=== PATIENT | male | born 1955 | race Two or more races ===

== ENCOUNTER 2017-01-06 12:58 | Emergency (ER) | payer MEDICAID ==
[~2017-01-06] VITALS: Ht 167.6 cm; Wt 68.0 kg
[2017-01-06 14:09] LABS: Basophils # (auto) 0.1 uL; Basophils % (auto) 0.9 % (0.0-2.0); Eosinophils # (auto) 0.5 uL; Eosinophils % (auto) 6.5 % (0.0-7.0); Hematocrit 41.9 % (41.0-53.0); Hemoglobin 13.6 g/dL (13.5-17.5); Lymphocytes # (auto) 2.6 uL; Lymphocytes % (auto) 36.4 % (10.0-50.0); Mean Corpuscular Hemoglobin 27.4 pg (28.0-32.0); Mean Corpuscular Hgb Conc. 32.6 g/dL (32.0-36.0); Mean Corpuscular Volume 84.1 fL (80.0-100.0); Mean Platelet Volume 7.8 fL (6.9-10.8); Monocytes # (auto) 0.7 uL; Monocytes % (auto) 9.1 % (0.0-12.0); Neutrophils # (auto) 3.4 uL; Neutrophils % (auto) 47.1 % (37.0-80.0); Nucleated Red Blood Cells % 0.1 %; Platelet Count (auto) 355 10^3/uL (140-450); White Blood Cell 7.2 10^3/uL (4.4-10.8)
[2017-01-06 14:25] LABS: Albumin 3.2 g/dL (3.4-5.0); BUN/Creatinine Ratio 18.4; Calcium 8.6 mg/dL (8.5-10.1); Potassium 4.6 mmol/L (3.5-5.1)
[2017-01-06 14:38] LABS: Bilirubin, Total 0.2 mg/dL (0.2-1.0); Total Protein 7.3 g/dL (6.4-8.2)
[2017-01-06 19:03] LABS: Urine Bilirubin Negative (Negative); Urine Blood 3+ /uL (Negative); Urine Ca Oxalate Crystal MOD (None Seen); Urine Glucose Normal (Normal); Urine Ketone 1+ (Negative); Urine Mucus FEW (None Seen); Urine Nitrite POSITIVE (Negative); Urine RBC 2835 /hpf (0 - 3); Urine Urobilinogen Normal (Negative); Urine pH 5.5 (5.0-8.0)
[2017-01-06 19:08] LABS: Urine Color Brown (Yellow)
[2017-01-06] MEDS ORDERED: CIPROFLOXACIN HCL 500 MG TAB PO ONE (20:15)
[2017-01-06 20:30] VITALS: BP 127/89
== END 2017-01-06 20:40 | disposition home or self-care (01) ==
LOC: ER 12:58
DX: N39.0 Urinary tract infection, site not specified (principal); Z95.1 Presence of aortocoronary bypass graft
CPT/HCPCS: 36415; 80053; 81001; 85025

== ENCOUNTER 2022-01-21 10:08 | Inpatient (IN) | payer MEDICARE, MEDICAID ==
[2022-01-20 13:46] LABS: Basophils # (auto) 0.1 10 ^3/uL (0-0.2); Basophils % (auto) 0.9 % (0.0-2.0); Eosinophils # (auto) 0.1 10 ^3/uL (0-0.8); Eosinophils % (auto) 1.5 % (0.0-7.0); Hematocrit 45.5 % (41.0-53.0); Hemoglobin 14.8 g/dL (13.5-17.5); Lymphocytes % (auto) 32.4 % (10.0-50.0); Mean Corpuscular Hemoglobin 28.4 pg (28.0-32.0); Mean Corpuscular Hgb Conc. 32.4 g/dL (32.0-36.0); Mean Corpuscular Volume 87.7 fL (80.0-100.0); Monocytes # (auto) 0.6 10 ^3/uL (0-1.3); Neutrophils # (auto) 3.5 10 ^3/uL (1.6-8.6); Neutrophils % (auto) 56.2 % (37.0-80.0); Nucleated Red Blood Cells % 0.1 %; Red Blood Cells 5.19 10^6/uL (4.5-5.90); Red Cell Distribution Width 14.2 % (11.8-14.3); White Blood Cell 6.2 10^3/uL (4.4-10.8)
[2022-01-20 13:54] LABS: Urine Bacteria NONE SEEN /hpf (None Seen); Urine Blood Negative /uL (Negative); Urine Mucus FEW (None Seen); Urine Specific Gravity 1.021 (1.001-1.035); Urine WBC 1 /hpf (0 - 3)
[2022-01-20 14:06] LABS: INR 1.03 (0.9-1.15); Partial Thromboplastin Time 27.7 sec (24.6-33.4)
[2022-01-20 14:31] LABS: BUN/Creatinine Ratio 17.1; Bilirubin, Total 0.7 mg/dL (0.2-1.0); Calcium 9.1 mg/dL (8.5-10.1); Potassium 4.5 mmol/L (3.5-5.1); Total Protein 7.1 g/dL (6.4-8.2)
[~2022-01-21] VITALS: Ht 160 cm; Wt 64.8 kg
[~2022-01-21 10:08] MED LIST: ASPI81CH59 PO; ATOR40TA52 PO; BISA5TAB PO; BUSP5TAB51 PO; ESCI20TA PO; EZET10TA22 PO; ISOS1TAB28 PO; PANT40TA2 PO; TRAZ100T3 PO
[2022-01-21] MEDS ORDERED: ceFAZolin 1GM/50ML 100 ML IV ONE (10:14)
[2022-01-21] MEDS ORDERED: ONDANSETRON HCL 4 MG/2 ML VIAL IV PRN ×2 (11:30→13:30)
[2022-01-21] MEDS ORDERED: HYDROmorphone HCL 2 MG/ML VL/or syr IV PRN ×3 (11:30→13:30)
[2022-01-21] MEDS ORDERED: BUPIVACAINE IMPLANT 3x100mg IL ONE (12:00)
[2022-01-21] MEDS ORDERED: ROCURONIUM 10MG/ML 10ML VIAL IV ONE (12:07)
[2022-01-21] MEDS ORDERED: fentaNYL CITRATE 100 MCG/2 ML VL ONE (12:07)
[2022-01-21] MEDS ORDERED: MIDAZOLAM HCL 2MG/2ML 2ml VIAL (1mg/ml) ONE (12:07)
[2022-01-21] MEDS ORDERED: LIDOCAINE 2% (LOCAL ANESTH.) PF 5ml SDV ONE (12:08)
[2022-01-21] MEDS ORDERED: ONDANSETRON HCL 4 MG/2 ML VIAL ONE (12:08)
[2022-01-21] MEDS ORDERED: PROPOFOL 10 MG/ML 20 ML IV ONE (12:08)
[2022-01-21] MEDS ORDERED: ACETAMINOPHEN/CODEINE#3 (300/30mg) TAB PO PRN (13:30)
[2022-01-21] MEDS ORDERED: GLYCOPYRROLATE 0.2 MG/ML 1ML VIAL ONE ×2 (13:31→13:42)
[2022-01-21] MEDS ORDERED: NEOSTIGMINE 1 MG/ML INJ (10mg/10ML VIAL) ONE (13:32)
[2022-01-21] MEDS: ceFAZolin 1GM/50ML 50 ML IV SCH ×2 (14:00→21:55)
[2022-01-21] MEDS ORDERED: HYDROcodone-ACET 5/325MG TAB PO PRN (15:15)
[2022-01-21] MEDS ORDERED: NITROGLYCERIN 0.4 MG SL TAB SL PRN (17:45)
[2022-01-21] MEDS ORDERED: MORPHINE SULFATE INJ 2 MG/ml SYRG IV PRN (17:45)
[2022-01-21 18:00] VITALS: BP 129/71
[2022-01-21] MEDS: D5W/SOD CHL 0.45%/KCL 20MEQ 1,000 ML IV SCH (18:37)
[2022-01-21 20:00] VITALS: BP 134/82
[2022-01-21] MEDS: DOCUSATE SOD 100 MG CAP PO SCH (21:54)
[2022-01-21] MEDS: ATORVASTATIN 20 MG TAB PO SCH (21:55)
[2022-01-21 22:00] VITALS: BP 134/82
[2022-01-22] MEDS: D5W/SOD CHL 0.45%/KCL 20MEQ 1,000 ML IV SCH (02:50)
[2022-01-22 05:00] VITALS: BP 125/72
[2022-01-22] MEDS: ceFAZolin 1GM/50ML 50 ML IV SCH ×3 (06:19→22:11)
[2022-01-22 06:34] LABS: Basophils # (auto) 0 10 ^3/uL (0-0.2); Basophils % (auto) 0.3 % (0.0-2.0); Eosinophils # (auto) 0.1 10 ^3/uL (0-0.8); Eosinophils % (auto) 0.9 % (0.0-7.0); Hematocrit 41.5 % (41.0-53.0); Lymphocytes # (auto) 1.2 10 ^3/uL (0.4-5.4); Lymphocytes % (auto) 16.5 % (10.0-50.0); Mean Corpuscular Hemoglobin 29.6 pg (28.0-32.0); Mean Corpuscular Hgb Conc. 33.7 g/dL (32.0-36.0); Mean Corpuscular Volume 87.7 fL (80.0-100.0); Monocytes # (auto) 0.6 10 ^3/uL (0-1.3); Monocytes % (auto) 8.8 % (0.0-12.0); Neutrophils # (auto) 5.4 10 ^3/uL (1.6-8.6); Neutrophils % (auto) 73.5 % (37.0-80.0); Red Blood Cells 4.73 10^6/uL (4.5-5.90); Red Cell Distribution Width 14.4 % (11.8-14.3); White Blood Cell 7.3 10^3/uL (4.4-10.8)
[2022-01-22 07:00] LABS: BUN/Creatinine Ratio 13.8; Calcium 8.5 mg/dL (8.5-10.1)
[2022-01-22 07:01] LABS: Potassium 4.8 mmol/L (3.5-5.1)
[2022-01-22] MEDS: DOCUSATE SOD 100 MG CAP PO SCH ×2 (08:17→22:11)
[2022-01-22] MEDS: ISOSORBIDE MONONITRATE ER 60 MG TAB PO SCH (08:18)
[2022-01-22 09:00] VITALS: BP 125/73
[2022-01-22] MEDS ORDERED: PANTOPRAZOLE 40 MG/10 ML VIAL INJ IV SCH (10:00)
[2022-01-22] MEDS ORDERED: TAMSULOSIN HYDROCHLORIDE 0.4 MG CAP PO ONE (10:45)
[2022-01-22] MEDS ORDERED: LACTULOSE 20Gm/30ML SOLN PO PRN (10:45)
[2022-01-22 13:00] VITALS: BP 89/55
[2022-01-22 17:00] VITALS: BP 109/70
[2022-01-22 22:00] VITALS: BP 96/54
[2022-01-22] MEDS: ATORVASTATIN 20 MG TAB PO SCH (22:11)
[2022-01-23 05:13] VITALS: BP 109/78
[2022-01-23] MEDS: ceFAZolin 1GM/50ML 50 ML IV SCH ×2 (06:32→14:00)
[2022-01-23 09:00] VITALS: BP 116/75
[2022-01-23] MEDS ORDERED: PANTOPRAZOLE 40 MG TAB PO SCH (10:00)
[2022-01-23] MEDS: DOCUSATE SOD 100 MG CAP PO SCH (10:29)
[2022-01-23] MEDS: ISOSORBIDE MONONITRATE ER 60 MG TAB PO SCH (10:31)
[2022-01-23 13:00] VITALS: BP 108/69
[2022-01-23 13:20] VITALS: BP 110/71
[2022-01-23] MEDS ORDERED: TAMSULOSIN HYDROCHLORIDE 0.4 MG CAP PO SCH (18:00)
== END 2022-01-23 14:50 | disposition home or self-care (01) | DRG 228 ==
LOC: SUR 10:08 → EAST 17:39 → TELE-EAST 17:59 → EAST 01-22 15:30
PROVIDERS: ADMIT Internal Medicine; ATTEND Internal Medicine
PROC: 0YQ50ZZ Repair Right Inguinal Region, Open Approach (ICD-10-PCS; principal; 2022-01-21 12:02)
DX: K40.91 Unilateral inguinal hernia, without obstruction or gangrene, recurrent (principal); E78.5 Hyperlipidemia, unspecified; I25.10 Atherosclerotic heart disease of native coronary artery without angina pectoris; F32.A Depression, unspecified; R33.9 Retention of urine, unspecified; F41.9 Anxiety disorder, unspecified; Z20.822 Contact with and (suspected) exposure to COVID-19; Z95.1 Presence of aortocoronary bypass graft
CPT/HCPCS: 36415; 80048; 80053; 81001; 85025; 85610; 85730; 86850; 86900; 86901; C9113; G0378; J0690; J2001; J2250; J2405; J2704

== ENCOUNTER 2025-01-13 19:16 | Emergency (ER) | payer MEDICARE, MEDICAID ==
[~2025-01-13] VITALS: Ht 160 cm; Wt 66.6 kg
[~2025-01-13 19:16] MED LIST changes: +TRAZ-228 PO; -TRAZ100T3 PO
--- NOTE | 2025-01-13 19:35 | ED.PDOC ---
History of Present Illness(SKN HPI Comments 69 y/o M presents with c/c of upper lip puncture wound. Patient reports on being bit, accidentally, by his own dog at 1700, this evening. He comments on being evaluated at an urgent care facility, earlier, today, for wound, where it was cleaned with iodine, and inquires for a second opinion. Denies any further acute symptoms. Vaccination status of animal is UTD. Chief Complaint: Animal Bite Time Seen by MD: 19:30 Primary Care Provider: SAGAR History of Present Illness: Nurses Notes, Medications, Allergies Allergies: Coded Allergies: NO KNOWN ALLERGIES (Unverified , 12/11/16) Home Meds Reported Medications Isosorbide Mononitrate (Isosorbide Mononitrate Er) 30 Mg Tab, 30 MG PO DAILY, TAB 01/20/22 Bisacodyl (Ex-Lax Ultra) 5 Mg Tab, 5 MG PO BID, TAB 01/20/22 Bisacodyl (Ex-Lax Ultra) 5 Mg Tab, 2 TAB PO UD, #2 TAB 01/20/22 Trazodone Hcl (Trazodone Hcl) 100 Mg Tab, 50 MG PO QPM, TAB 01/20/22 Pantoprazole Sodium Sesquihydr (Protonix) 40 Mg Tab, 40 MG PO DAILY, #30 TAB 01/20/22 Ezetimibe (Zetia) 10 Mg Tab, 10 MG PO DAILY, TAB 01/20/22 Escitalopram Oxalate (Lexapro) 20 Mg Tab, 20 MG PO DAILY, TAB 01/20/22 Buspirone Hcl (Buspirone Hcl) 5 Mg Tab, 5 MG PO DAILY, TAB 01/20/22 Aspirin (Aspirin Low Dose) 81 Mg Chw, 81 MG PO DAILY, TAB.CHEW 01/20/22 Atorvastatin Calcium (ATORVASTATIN CALCIUM) 40 Mg Tab, 40 MG PO DAILY, TAB 01/20/22 Information Source: Patient, Relative (Child) Mode of Arrival: Ambulatory Past Medical History PAST MEDICAL HISTORY: Denies Surgical History: CABG, Hernia Repair Family History Family History: Unknown Social History Smoker: Non-Smoker Alcohol: Denies ETOH Use Drugs: Denies Drug Use Lives In: Home All Other Systems: Reviewed and Negative (Comprehensive review of systems are negative unless stated in HPI) Physical Exam General Appearance: No Apparent Distress, Normal HEENT: Pharynx Normal Neck: Full Range of Motion, Non-Tender, Normal Inspection Respiratory: Lungs Clear, No Respiratory Distress, Normal Breath Sounds Cardiovascular: No Murmur, Normal Peripheral Pulses, Regular Rate/Rhythm Breast Exam: Deferred Gastrointestinal: Non Tender, Soft Genitalia: Deferred Pelvic: Deferred Rectal: Deferred Extremities: Normal capillary refill, Non-tender Musculoskeletal : Apperance: Normal Neurologic: Alert, No Motor Deficits, Normal Affect, Normal Mood, No Sensory Deficits Cerebellar Function: Normal Reflexes: Normal Skin: Dry, Normal Color, Warm, Wounds (Scabbed over 1.5 cm laceration upper mid lip no noted purulent drainage or erythema) Lymphatic: No Adenopathy Was a procedure done? Was a procedure done?: No Differential Diagnosis (INTG) Differential Diagnosis: Laceration, Puncture Wound, Other (retained foreign body, neurovascular injury) X-Ray, Labs, Meds, VS Vital Signs Date Time Temp Pulse Resp B/P (MAP) Pulse Ox O2 Delivery O2 Flow Rate FiO2 01/13/25 19:17 98.0 70 16 120/86 97 98.0 X-Ray, Labs, Meds, VS Comment Advised to fill prescribed Augmentin take as prescribed. Patient states did not receive tetanus and is greater than 10 years we will update tetanus today. Advised to follow up two days with PCP urgent care or back here for wound re- evaluation. ER return precautions given patient indicates understanding agrees with discharge plan of care. Time of 1ST Reevaluation: 20:00 Reevaluation 1ST: Unchanged Time of 2ND Reevaluation: 20:50 Reevaluation 2ND: Improved Patient Education/Counseling: Diagnosis, Treatment, Need For Follow Up Family Education/Counseling: No Family Present SEPSIS Sepsis Screen Date sepsis recognized/suspect: Jan 13, 2025 Time Sepsis recognized/suspect: 1919 Recent Procedure: No On Antibiotic Therapy: No Respiratory Rate >20: No Heart Rate >90: No Temp<36 C (96.8 F) or >38.3 C: No SBP <90 or MAP <65 mmHG: No New Acute Mental Status Change: No Is the patient on CPAP, BIPAP,: No Vital Signs Date Time Temp Pulse Resp B/P (MAP) Pulse Ox O2 Delivery O2 Flow Rate FiO2 01/13/25 19:17 98.0 70 16 120/86 97 98.0 Departure 1 Departure Time of Disposition: 20:50 Impression: Primary Impression: Dog bite of face Qualified Codes: S01.85XA - Open bite of other part of head, initial encounter; W54.0XXA - Bitten by dog, initial encounter Disposition: 01 HOME / SELF CARE / HOMELESS Condition: Stable Discharged With: Self Critical Care Note Critical Care Time?: No Stability Stability form required: No Heart Score Heart Score: Heart Score Response (Comments) Value History N/A 0 EKG N/A 0 Age N/A 0 Risk Factors N/A 0 Troponin N/A 0 Total 0 I personally scribed for ER ([email or web address]) on 01/13/25 at 19:35. Electronically submitted by Robbin Schreiber ([email or web address]). ER Jan 13, 2025 19:35 ERUM ROJAS [facility] Jan 13, 2025 20:52
[2025-01-13] MEDS ORDERED: TETANUS-DIPTH-ACEL PERTUSSIS 0.5ML SYR Tdap IM ONE (21:00)
[2025-01-13 21:12] VITALS: BP 109/70; TEMP 97.8
[2025-01-13 21:21] VITALS: PULSE 62; RESP 16; O2SAT 92
== END 2025-01-13 21:23 | disposition home or self-care (01) ==
LOC: ER 19:16
DX: S01.511A Laceration without foreign body of lip, initial encounter (principal); S01.85XA Open bite of other part of head, initial encounter; Z98.890 Other specified postprocedural states; Z95.1 Presence of aortocoronary bypass graft; Z79.899 Other long term (current) drug therapy; Z79.82 Long term (current) use of aspirin; W54.0XXA Bitten by dog, initial encounter; Y93.89 Activity, other specified; Y92.89 Other specified places as the place of occurrence of the external cause; Y99.8 Other external cause status